=== PATIENT | male | born 1950 | race Caucasian/White ===

== ENCOUNTER 2019-01-16 16:10 | Emergency (ER) | payer MEDICARE ==
[~2019-01-16] VITALS: Ht 190.5 cm; Wt 146.5 kg
[~2019-01-16 16:10] MED LIST: CERTAGEN SOL1 BO1 NG; CIPROFLOXACIN500 M1 PO; ETODOLAC 400 M400 M1 PO; LOVAZA1000 MG PO; METFORMIN 500500 MG PO; NORCO 5-325 TA1 EACH PO; PERCOCET 5-3251 EACH PO; PRISTIQ50 MG PO; PROMETHAZINE12.5 M1 PO; TRILIPIX135 MG PO
[2019-01-16 17:10] VITALS: BP 135/68
== END 2019-01-16 17:27 | disposition home or self-care (01) ==
LOC: M.ERS 16:10
DX: S61.212A Laceration without foreign body of right middle finger without damage to nail, initial encounter (principal); F32.9 Major depressive disorder, single episode, unspecified; G47.30 Sleep apnea, unspecified; Z87.01 Personal history of pneumonia (recurrent); Z90.5 Acquired absence of kidney; W26.0XXA Contact with knife, initial encounter; Y93.89 Activity, other specified; Y92.89 Other specified places as the place of occurrence of the external cause; Y99.8 Other external cause status

== ENCOUNTER 2019-01-19 18:23 | Emergency (ER) | payer MEDICARE ==
[~2019-01-19] VITALS: Ht 190.5 cm; Wt 101.2 kg
[2019-01-19] MEDS ORDERED: AMLODIPINE BESY10 MG PO (18:39)
[2019-01-19] MEDS ORDERED: REQUIP 1 MG TABL1 M1 PO (18:39)
[2019-01-19] MEDS ORDERED: TRAZODONE HCL50 MG PO (18:39)
[2019-01-19] MEDS ORDERED: ZOLOFT50 MG PO (18:39)
[2019-01-19] MEDS ORDERED: ANTIHISTAMINE (18:40)
[2019-01-19] MEDS ORDERED: KEFLEX500 M1 PO (18:58)
[2019-01-19 19:24] VITALS: BP 156/77
== END 2019-01-19 19:25 | disposition home or self-care (01) ==
LOC: M.ERS 18:23
DX: S61.213D Laceration without foreign body of left middle finger without damage to nail, subsequent encounter (principal); F32.9 Major depressive disorder, single episode, unspecified; G47.30 Sleep apnea, unspecified; Z90.5 Acquired absence of kidney; Z85.528 Personal history of other malignant neoplasm of kidney; X58.XXXD Exposure to other specified factors, subsequent encounter

== ENCOUNTER 2020-09-05 11:00 | Emergency (ER) | payer MEDICARE ==
[~2020-09-05] VITALS: Ht 190.5 cm; Wt 99.8 kg
[~2020-09-05 11:00] MED LIST changes: +AMLODIPINE BESY10 MG PO; +ANTIHISTAMINE; +KEFLEX500 M1 PO; +REQUIP 1 MG TABL1 M1 PO; +TRAZODONE HCL50 MG PO; +ZOLOFT50 MG PO
[2020-09-05 11:06] VITALS: BP 154/77
[2020-09-05] MEDS ORDERED: PERIOGARD473 ML SWISH&SPIT (11:24)
[2020-09-05] MEDS ORDERED: PENICILLIN VK500 M1 PO (11:24)
== END 2020-09-05 11:37 | disposition home or self-care (01) ==
LOC: M.ERS 11:00
DX: K02.9 Dental caries, unspecified (principal); G47.30 Sleep apnea, unspecified; F17.210 Nicotine dependence, cigarettes, uncomplicated; Z88.8 Allergy status to other drugs, medicaments and biological substances; Z87.01 Personal history of pneumonia (recurrent); Z85.9 Personal history of malignant neoplasm, unspecified